=== PATIENT | male | born 1945 | race Hispanic/Latino ===

== ENCOUNTER 2017-08-28 15:14 | Outpatient (CLI) | payer MEDICARE ==
--- NOTE | 2017-08-28 16:25 | XRay Report ---
XRAY LEFT KNEE FOUR VIEWS: 08/28/17 15:14:00 CLINICAL: Left knee pain. FINDINGS: No fracture or dislocation. Mild medial joint space narrowing. Mild patellofemoral joint arthritis with tiny osteophytes. No joint effusion. Normal soft tissues. IMPRESSION: Very minimal osteoarthritis.
== END 2017-08-28 15:15 | disposition home or self-care (01) ==
LOC: SPVIMAG 15:14
PROVIDERS: ATTEND Orthopaedic Surgery Sports Medicine
DX: M17.12 Unilateral primary osteoarthritis, left knee (principal)